=== PATIENT | male | born 1945 | race Caucasian/White ===

== ENCOUNTER → 2019-09-16 10:12 | Outpatient (CLI) | payer MEDICARE, OTHER, SELFPAY ==
--- NOTE | ~2019-09-16 | MR_ITS ---
EXAMINATION: MR lumbar spine wo con DATE: 09/16/2019 11:21 INDICATION: Lumbar radiculopathy. Low back pain. Left leg pain. TECHNIQUE: Magnetic resonance imaging (MRI) of the lumbar spine was performed without intravenous con trast. Sequences included sagittal T2-weighted FSE, sagittal T2-weighted FS FSE, sagittal T1-weighted FSE, and axial T2-weighted FSE. COMPARISON: None FINDINGS: There are cysts in the kidneys measuring up to 1.3 cm on the right. Bone alignment is chandana l. Vertebral body heights and intervertebral disc heights are normal. The distal spinal cord signal i ntensity is normal. The conus medullaris is at L1. The following disc levels are specifically discuss ed: L1-L2: The disc does not extend beyond the endplate margin. There is mild bilateral facet joint osteo arthritis. There is no neural foraminal stenosis. There is no central canal stenosis. L2-L3: The disc does not extend beyond the endplate margin. There is mild bilateral facet joint osteo arthritis. There is no neural foraminal stenosis. There is no central canal stenosis. L3-L4: The disc does not extend beyond the endplate margin. There is mild bilateral facet joint osteo arthritis. There is no neural foraminal stenosis. There is no central canal stenosis. L4-L5: The disc is bulging. There is moderate bilateral facet joint osteoarthritis. There is mild pamela ateral neural foraminal stenosis. There is mild central canal stenosis. L5-S1: The disc is bulging. There is severe bilateral facet joint osteoarthritis. There is mild bilat eral neural foraminal stenosis. There is mild central canal stenosis. IMPRESSION: 1. Mild lumbar spondylosis. Reviewed, dictated and finalized at location A. IMPRESSION: 1. Mild lumbar spondylosis.
== END ==
PROVIDERS: Visit Provider Nurse Practitioner Family
DX: M47.26 Other spondylosis with radiculopathy, lumbar region (principal)
CPT/HCPCS: 72148

== ENCOUNTER 2020-03-13 11:54 | Emergency (ER) | payer MEDICARE, OTHER, SELFPAY ==
[2020-03-13] VITALS (24 sets, daily range): BP systolic 132–153; BP diastolic 66–73; PULSE 55–69; RESP 8–18; TEMP 36.7; O2SAT 94–99
--- NOTE | 2020-03-13 11:59 | ECG_ITS ---
Measurements Intervals Frederic Rate: 61 P: 41 WI: 162 QRS: 31 QRSD: 90 T: 13 QT: 395 QTc: 398 Interpretive Statements SINUS RHYTHM EARLY PRECORDIAL R/S TRANSITION BORDERLINE ECG Electronically Signed On 03-13-2020 12:44:36 [employer] by William Canas D.O.
[2020-03-13 12:16] LABS: Basophils Percent Auto 0.7 % (0.2-1.2); Eosinophils Absolute Auto 0.1 K/mm3 (0-0.3); Eosinophils Percent Auto 1.8 % (0-4.4); Hematocrit 41.3 % (42.0-52.0); Hemoglobin 14.2 g/dL (14.0-18.0); Immature Granulocyte Absolute 0.01 K/mm3 (0.00-0.031); Immature Granulocyte Percent A 0.2 % (0-0.5); Lymphocytes Absolute Auto 1.54 K/mm3 (0.9-3.2); Lymphocytes Percent Auto 25.2 % (18.3-44.2); Mean Corpuscular HGB Conc 34.4 g/dl (32-36); Mean Platelet Volume 9.3 fl (7.4-10.4); Monocytes Absolute Auto 0.6 K/mm3 (0.1-0.6); Monocytes Percent Auto 9.7 % (2.6-8.5); Neutrophils Absolute Auto 3.8 K/mm3 (1.3-6.7); Neutrophils Percent Auto 62.4 % (45.5-73.1); Platelet Count Result 221 k/mm3 (150-375); Red Blood Count 4.44 M/mm3 (4.6-6.20); Red Cell Distribution Width 12.6 % (11.5-14.5); White Blood Count 6.1 K/mm3 (4.5-10.0)
--- NOTE | 2020-03-13 12:25 | ED.DIZZY ---
HPI - Dizziness General Chief Complaint: Syncope Stated Complaint: syncopal episode Time Seen by Provider: 03/13/20 12:00 Source: patient Mode of arrival: wheelchair Limitations: no limitations History of Present Illness HPI Narrative: This patient is a 74 year old male with history of hypertension, CAD, s/p stents, who presents for an evaluation of dizziness. He states he was visiting his upstairs in the hospital. He was standing up learning how to help his before she is sent home. He states he developed nausea and dizziness. He states he felt like he was going to pass out so he sit down. He reports he was told that he passed out and he was unresponsive for 2 minutes. He has no complaints now. He denies chest pain, palpitations, abdominal pain, headache or shortness of breath. He states this occurred 3 years ago and he was told he was dehydrated. Related Data Home Medications Medication Instructions Recorded Confirmed atorvastatin 03/13/20 carvedilol 03/13/20 clopidogrel 03/13/20 fluticasone propionate INTRANASAL 03/13/20 hydrochlorothiazide 03/13/20 omeprazole 03/13/20 valsartan 03/13/20 03/13/20 Allergies Allergy/AdvReac Type Severity Reaction Status Date / Time No Known Allergies Allergy Unverified 04/22/14 11:48 Review of Systems Review of Systems: All systems reviewed & are unremarkable except as noted in HPI and below Constitutional: Constitutional: Denies chills and Denies fever(s) Eyes: Eyes: Denies change in vision Cardiovascular: Cardiovascular: Denies chest pain, Denies rapid heart rate, Denies radiating jaw, neck or arm pain and Denies slow heart rate Respiratory: Respiratory: Denies cough, Denies dyspnea and Denies wheezing Gastrointestinal: Gastrointestinal: Denies abdominal pain, Denies nausea and Denies vomiting Musculoskeletal: Musculoskeletal: Denies back pain Neurologic: Denies headache(s), Denies focal weakness, Denies numbness and Denies weakness PMF Past Medical History Medical History (Updated 03/13/20 @ 21:34 by Mary Grace Smith MD) CAD (coronary artery disease) Hypertension Surgical History Surgical History (Updated 03/13/20 @ 21:34 by Mary Grace Smith MD) H/O cardiac catheterization Family History Family History (Updated 11/04/13 @ 07:13 by DOCTOR UNKNOWN) Mother Hypertension Family history of type 2 diabetes mellitus Father Family history of heart disease in male family member before age 55 Social History Social History Smoking status: Former smoker Smoking end date: 03/10/83 Alcohol intake: never Exam Const: General: no acute distress and alert Orientation/consciousness: patient oriented x3 HENMT: Head: normocephalic and atraumatic Face and sinus: face symmetric Throat: posterior oropharynx normal, tonsils normal and uvula midline Eyes: EOM: EOMs intact bilaterally Chest: Chest palpation & inspection: normal inspection of the chest Resp: Effort & Inspection: normal respiratory effort and no retractions Auscultation: clear to auscultation bilaterally Cardio: Rate: regular rate Rhythm: regular rhythm Heart sounds: no murmurs GI: GI Palp: Yes Soft to palpation, No Tenderness to palpation present (GI), No Guarding due to palpation present (GI) and No Rebound tenderness present Neuro: General: patient oriented x3, moves all extremities and CN's II-XI intact bilaterally Course Reevaluation(s) Reevaluation #1: PAtient was able to ambulate without dizziness. He walked around nursing station without assistance. 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 He likely had a vasovagal reaction. Date: 03/13/20 Time: 14:28 Vital Signs Vital signs: Vital Signs Temperature 98.0 F 03/13/20 12:05 Pulse Rate 60 03/13/20 12:05 Respiratory Rate 18 03/13/20 12:05 Blood Pressure 133/71 03/13/20 12:05 Pulse Oximetry 98 03/13/20 12:05 Temperature 98.0 F 03/13/20 12:05 Pulse Rate 62 0
[2020-03-13 12:29] LABS: Anion Gap 5 mmol/L (8-16); Blood Urea Nitrogen 14 mg/dL (9-20); Calcium 9.2 mg/dL (8.4-10.2); Carbon Dioxide 30 mmol/L (22-30); Chloride 98 mmol/L (98-107); Estimated CRCL calculation 55 ml/min; Estimated Glomerular Filt Rate > 60; Glucose 123 mg/dL (75-110); Sodium 133 mmol/L (137-145)
--- NOTE | 2020-03-13 12:30 | PC.NURSE ---
patient brought to ED from 2nd floor after syncopal episode while visiting his on the rehab floor. see initial notes. alert. oriented. denies head injury. denies any pain. see notes. SL inserted. EKG done. labs drawn. on manager r d. provider has seen patient. patient is aware of current treatment plan and expected wait time.
[2020-03-13] MEDS: SODIUM CHLORIDE 0.9% IV 1,000 ML 999 ML IV CONT (12:35)
[2020-03-13 12:45] LABS: Magnesium 1.8 mg/dL (1.6-2.3)
--- NOTE | 2020-03-13 12:55 | PC.NURSE ---
mammography technologist at bedside for orthostatic vitals. patient tolerated well. documented in chart.
[2020-03-13 13:00] LABS: Troponin I < 0.012 ng/mL (0.000-0.034)
--- NOTE | 2020-03-13 13:50 | PC.NURSE ---
patient resting on stretcher. IVF done. patient unhooked from monitor. urinal given. advised to give us a urine specimen. patient with questions about discharge. will discuss with provider.
--- NOTE | 2020-03-13 14:02 | PC.NURSE ---
provider in room. patient unhooked from monitor. ambulated in hallway with provider without difficulty.
--- NOTE | 2020-03-13 14:15 | PC.NURSE ---
urine sent to lab.
[2020-03-13 14:21] LABS: Add Urine Microscopic? NO; Appearance Urine Clear (Clear); Bilirubin Urine Negative (Negative); Blood Urine Negative (Negative); Color Urine Yellow (Yellow); Glucose Urine UA Negative (Negative); Ketones Urine Negative (Negative); Leukocyte Esterase Ur Negative LEU/UL (Negative); Mucus Urine Rare /lpf; Nitrate Urine Negative (Negative); Protein Urine Negative (Negative); RBC Urine 0-2 /hpf (0-2); Specific Grav Ur 1.017 (1.001-1.035); Urobilinogen Urine Negative mg/dL (<2.0); WBC Urine 0-3 /hpf
== END 2020-03-13 14:45 | disposition home or self-care (01) ==
PROVIDERS: Emergency Medicine; Emergency Provider General Practice; PCP Nurse Practitioner Family
DX: R55 Syncope and collapse (principal); Z87.891 Personal history of nicotine dependence; I25.10 Atherosclerotic heart disease of native coronary artery without angina pectoris; I10 Essential (primary) hypertension; Z95.5 Presence of coronary angioplasty implant and graft
CPT/HCPCS: 36415; 80048; 81003; 83735; 84484; 85025; 93005; 96360; 99284; J7030